=== PATIENT | male | born 1935 | race Caucasian/White ===

== ENCOUNTER 2024-04-24 15:03 | Inpatient (IN) | payer OTHER ==
[2024-04-24 15:12] VITALS: BMI 14.6
[2024-04-24] MEDS ORDERED: VANCOMYCIN 1 GRAM (PRE-DOCKED) 1,000 MG/250 ML BAG IVPB ONE (16:10)
[2024-04-24] MEDS: VANCOMYCIN 1,000 MG in DEXTROSE 5%-WATER - 250 ML IVPB ONE (16:10)
[2024-04-24 16:13] LABS: VENOUS BASE EXCESS -2.9 mmol/L (-2-2); VENOUS O2 SATURATION 76.2 % (70-80); VENOUS PCO2 41.9 mmHg (38-52); VENOUS PH 7.349 (7.310-7.410)
[2024-04-24 16:16] LABS: INR 1.26 (0.83-1.09); PROTHROMBIN TIME (PATIENT) 14.1 SEC (9.7-13.0)
[2024-04-24 16:20] LABS: ACTIVATED PTT 30.7 SECONDS (25.2-36.5)
[2024-04-24 16:26] LABS: POTASSIUM 3.1 mmol/L (3.5-5.1)
[2024-04-24 16:27] LABS: HEMOGLOBIN 7.7 GM/dL (11.7-16.9); MCH 26.4 pg (25.7-33.7); MEAN CELL VOLUME 85.2 fl (80-96); MEAN PLT VOLUME 9.4 fl (7.5-11.1); PLATELET COUNT 346 10^3/uL (134-434); RBC 2.93 M/mm3 (4.00-5.60); RDW 19.7 % (11.9-15.9)
[2024-04-24 16:29] LABS: ALBUMIN 2.1 g/dl (3.4-5.0); BLOOD UREA NITROGEN 39.5 mg/dL (7-18); CALCIUM 9.5 mg/dL (8.5-10.1)
[2024-04-24 16:32] LABS: CREATININE 1.1 mg/dL (0.55-1.3)
[2024-04-24 16:35] LABS: BILIRUBIN,TOTAL 2.7 mg/dL (0.2-1); TOT PROT 5.5 g/dl (6.4-8.2)
[2024-04-24 16:56] LABS: LACTIC ACID 5.4 mmol/L (0.4-2.0)
[2024-04-24] MEDS: LACTATED RINGERS SOLUTION 1000 ML INFUS.BAG IV ONE (17:00)
[2024-04-24 17:09] LABS: EPI CELLS 15 /uL (0-25.1); HYALINE CASTS 3 /uL (0-3.1); PH,URINE 5.5 (5.0-8.0); URINE APPEARANCE CLOUDY; URINE BILIRUBIN 2+ (NEGATIVE); URINE COLOR DK YELLOW; URINE GLUCOSE (UA) NEGATIVE (NEGATIVE); URINE KETONE NEGATIVE (NEGATIVE); URINE LEUK ESTERASE TRACE (NEGATIVE); URINE NITRITE NEGATIVE (NEGATIVE); URINE PROTEIN 1+ (NEGATIVE); URINE WBC 17 /uL (0-25.8)
[2024-04-24] MEDS: SODIUM CHLORIDE 0.9% 1000 ML INFUS.BAG IV STA (17:23)
[2024-04-24 17:50] LABS: ANISOCYTOSIS 2+; MACROCYTOSIS 0
[2024-04-24] MEDS ORDERED: ACETAMINOPHEN INJECTION 100 ML ONE (18:14)
[2024-04-24] MEDS: ACETAMINOPHEN 1000 MG/100 ML BAG IVPB ONE (18:26)
[2024-04-24 19:42] LABS: LACTIC ACID 5.1 mmol/L (0.4-2.0)
[2024-04-24] MEDS ORDERED: MORPHINE SULFATE 2 MG/ML SYRINGE ONE (20:20)
[2024-04-24] MEDS: morphine CARPU-JECT 2 MG/1 ML DISP.SYRIN IVPUSH ONE (20:22)
[2024-04-24 21:00] LABS: URINE RBC 46.3 /uL (0-23.9)
[2024-04-24 21:01] LABS: URINE BACTERIA 7.1 /uL (0-1359)
[2024-04-24] MEDS: MORPHINE SULFATE/0.9% NACL/PF 100 MG/100 ML BAG IVPB SCH (22:52)
[2024-04-24] MEDS: SCOPOLAMINE HYDROBROMIDE 1 PATCH PATCH.TD72 TD SCH (22:52)
[2024-04-25] MEDS: LORazepam 2 MG/ML SDV VIAL IVPUSH PRN (00:17)
[2024-04-25 08:45] VITALS: TEMP 98.2
[2024-04-25] MEDS: MORPHINE SULFATE/0.9% NACL/PF 100 MG/100 ML BAG IVPB SCH ×2 (09:21→17:38)
[2024-04-25 12:36] VITALS: RESP 26
[2024-04-26 05:13] VITALS: BP 68/34; PULSE 89
[2024-04-26] MEDS: ACETAMINOPHEN 325 MG SUPP.RECT RC PRN (12:42)
== END 2024-04-26 18:48 | disposition expired | DRG 871 ==
LOC: JER 15:03 → JERBED 18:57 → J6S 20:59 → OBSVTOIN 04-25 09:15
PROVIDERS: ADMIT Internal Medicine; ATTEND Internal Medicine
DX: A41.9 Sepsis, unspecified organism (principal); J96.01 Acute respiratory failure with hypoxia; R65.21 Severe sepsis with septic shock; J18.9 Pneumonia, unspecified organism; C22.1 Intrahepatic bile duct carcinoma; E87.20 Acidosis, unspecified; J81.1 Chronic pulmonary edema
CPT/HCPCS: 0241U-QW; 36415; 71045-TC-FY; 80053; 81003; 82803; 83605; 83735; 84484; 85025; 85610; 85730; 86850; 86900; 86901; 87040; 87086; 99291; G0378; J0131